=== PATIENT | female | born 1940 | race Caucasian/White ===

== ENCOUNTER 2017-11-22 17:09 | Emergency (ER) | payer MEDICARE, OTHER ==
[~2017-11-22] VITALS: Ht 170.2 cm; Wt 89.1 kg
[2017-11-22] MEDS ORDERED: ACETAMINOPHEN 500 MG TABLET ONE (18:17)
[2017-11-22] MEDS ORDERED: KETOROLAC 30 MG/1 ML ONE (18:17)
[2017-11-22 18:21] VITALS: BP 154/85
[2017-11-22] MEDS ORDERED: ACETAMINOPHEN 500 MG TABLET PO ONE (18:30)
[2017-11-22] MEDS ORDERED: KETOROLAC 30 MG/1 ML IM ONE (18:30)
[2017-11-22] MEDS ORDERED: LIDODERM 5% PATCH TD ONE (18:30)
== END 2017-11-22 19:23 | disposition home or self-care (01) ==
LOC: ED 19:00
DX: M54.41 Lumbago with sciatica, right side (principal)
CPT/HCPCS: 72110; 96372; 99284; J1885

== ENCOUNTER 2018-04-13 08:17 | Observation (INO) | payer MEDICARE, OTHER ==
[~2018-04-13] VITALS: Ht 170.2 cm; Wt 90.5 kg
--- NOTE | 2018-04-13 09:06 | NUR ---
Pt presemts to ED with complaints of chest discomfort. Pt describes as "twinge in my chest," starting ar approx 0400 this AM. Pt states she has not been sleeping well for the past weeek. Pt denies any dixxiness, N/V or SOB. CP moniotrs in place, callm light in reach. Family at bedside.
[2018-04-13] MEDS ORDERED: ASPIRIN 81 MG TABLET CHEW PO ONE (09:30)
[2018-04-13] MEDS ORDERED: SODIUM CHLORIDE FLUSH 10ML SYR IVF ONE (09:30)
[2018-04-13] MEDS ORDERED: ASPIRIN 81 MG TABLET CHEW ONE (09:37)
[2018-04-13] MEDS ORDERED: MELO15TA24 PO (09:42)
[2018-04-13 09:45] LABS: BASOPHILS # (AUTO) 0.02 x10^3/uL (0-0.1); BASOPHILS % (AUTO) 0 % (0-1); EOSINOPHILS # (AUTO) 0.13 x10^3/uL (0-0.4); EOSINOPHILS % (AUTO) 2 % (1-7); LYMPHOCYTES # (AUTO) 1.44 x10^3/uL (1-3.4); LYMPHOCYTES % (AUTO) 20 % (22-44); MD NO; MEAN CORPUSCULAR HEMOGLOBIN 30.2 pg (27.0-34.8); MEAN CORPUSCULAR HGB CONC 33.5 g/dL (32.4-35.8); MEAN CORPUSCULAR VOLUME 90.2 fL (80-100); MEAN PLATELET VOLUME 8.8 fL (7.4-10.4); MONOCYTES # (AUTO) 0.43 x10^3/uL (0.2-0.8); MONOCYTES % (AUTO) 6 % (2-9); NEUTROPHILS # (AUTO) 5.14 x10^3/uL (1.8-6.8); NEUTROPHILS % (AUTO) 72 % (42-75); PLATELET COUNT 218 x10^3/uL (130-400); RED BLOOD COUNT 5.12 x10^6/uL (3.82-5.3); RED CELL DISTRIBUTION WIDTH 12.9 % (9.6-15.2)
[2018-04-13 10:08] LABS: CULTURE INDICATED? NO; MICROSCOPIC NOT IND
[2018-04-13 10:21] LABS: ALANINE AMINOTRANSFERASE 44 U/L (12-78); ALBUMIN 3.7 g/dL (3.4-5.0); ANION GAP 7 mmol/L (5-15); CHLORIDE 107 mmol/L (98-107); CREATININE 0.74 mg/dL (0.55-1.02)
[2018-04-13 10:33] LABS: ALKALINE PHOSPHATASE 76 U/L (45-117); BILIRUBIN,TOTAL 0.6 mg/dL (0.2-1.0); TOTAL PROTEIN 7.6 g/dL (6.4-8.2); TROPONIN I 0.045 ng/mL (0.000-0.045)
[2018-04-13] MEDS ORDERED: SODIUM CHLORIDE FLUSH 10ML SYR IVF PRN (11:00)
[2018-04-13] MEDS ORDERED: ONDANSETRON ODT 4 MG PO PRN (11:30)
[2018-04-13] MEDS ORDERED: LABETALOL 5MG/ML, 20ML IVPush PRN (11:30)
[2018-04-13] MEDS ORDERED: ONDANSETRON 2MG/ML, 2ML IVPush PRN (11:30)
[2018-04-13] MEDS ORDERED: POLYETHYLENE GLYCOL 17 GM PACKET PO PRN (11:30)
--- NOTE | 2018-04-13 11:56 | NUR ---
Report to Palomo BAUTISTA.
[2018-04-13 12:17] LABS: CHOL/HDL RATIO 3.6; LDL/HDL RATIO 2.1 (0.5-3.0)
[2018-04-13 12:29] LABS: HEMOGLOBIN A1C 6.1 % (4.2-6.3)
[2018-04-13 13:17] LABS: TROPONIN I 0.051 ng/mL (0.000-0.045)
[2018-04-13 14:15] VITALS: BP 159/93
[2018-04-13] MEDS: PANTOPRAZOLE 40 MG IV IVPush SCH (14:16)
[2018-04-13] MEDS: ENOXAPARIN 40 MG/0.4 ML SQ SCH (14:16)
[2018-04-13] MEDS ORDERED: OMNIPAQUE 350 MG/ML, 100ML BOTTLE ONE (15:06)
[2018-04-13 16:22] LABS: TROPONIN I 0.049 ng/mL (0.000-0.045)
[2018-04-13 18:47] VITALS: BP 156/78
[2018-04-14 01:29] VITALS: BP 136/80
[2018-04-14 05:01] LABS: BASOPHILS # (AUTO) 0.02 x10^3/uL (0-0.1); BASOPHILS % (AUTO) 0 % (0-1); EOSINOPHILS # (AUTO) 0.25 x10^3/uL (0-0.4); EOSINOPHILS % (AUTO) 3 % (1-7); LYMPHOCYTES # (AUTO) 2.48 x10^3/uL (1-3.4); LYMPHOCYTES % (AUTO) 33 % (22-44); MD NO; MEAN CORPUSCULAR HEMOGLOBIN 30.6 pg (27.0-34.8); MEAN CORPUSCULAR VOLUME 89.9 fL (80-100); MEAN PLATELET VOLUME 9.4 fL (7.4-10.4); MONOCYTES # (AUTO) 0.59 x10^3/uL (0.2-0.8); MONOCYTES % (AUTO) 8 % (2-9); NEUTROPHILS # (AUTO) 4.28 x10^3/uL (1.8-6.8); NEUTROPHILS % (AUTO) 56 % (42-75); PLATELET COUNT 185 x10^3/uL (130-400); RED BLOOD COUNT 4.78 x10^6/uL (3.82-5.3); RED CELL DISTRIBUTION WIDTH 13.5 % (9.6-15.2)
[2018-04-14 05:18] LABS: ALBUMIN 3.3 g/dL (3.4-5.0); ANION GAP 4 mmol/L (5-15); CALCIUM 9.6 mg/dL (8.5-10.1); CHLORIDE 108 mmol/L (98-107)
[2018-04-14 05:24] LABS: ALANINE AMINOTRANSFERASE 39 U/L (12-78); ALKALINE PHOSPHATASE 65 U/L (45-117); BILIRUBIN,TOTAL 0.7 mg/dL (0.2-1.0); CREATININE 0.76 mg/dL (0.55-1.02); TOTAL PROTEIN 6.9 g/dL (6.4-8.2)
[2018-04-14] MEDS: PANTOPRAZOLE 40 MG IV IVPush SCH (07:30)
[2018-04-14 08:38] VITALS: BP 156/92
[2018-04-14] MEDS ORDERED: SENNA/DOCUSATE TABLET PO SCH (09:00)
[2018-04-14] MEDS ORDERED: REGADENOSON 0.4 MG/5 ML SYRINGE ONE (09:38)
[2018-04-14 10:19] LABS: TROPONIN I 0.042 ng/mL (0.000-0.045)
[2018-04-14] MEDS: ENOXAPARIN 40 MG/0.4 ML SQ SCH (13:17)
[2018-04-14] MEDS ORDERED: OMEP-110 PO (14:24)
[2018-04-14 15:42] VITALS: BP 133/66
== END 2018-04-14 18:00 | disposition home or self-care (01) ==
LOC: ED 09:55 → EDIP 11:10 → 5SO 12:07
PROVIDERS: ADMIT Hospitalist; ATTEND Hospitalist
DX: R07.89 Other chest pain (principal); I10 Essential (primary) hypertension; G47.00 Insomnia, unspecified; M54.30 Sciatica, unspecified side; Z82.49 Family history of ischemic heart disease and other diseases of the circulatory system; Z83.3 Family history of diabetes mellitus; R91.1 Solitary pulmonary nodule
CPT/HCPCS: 36415; 71045; 71275; 78452; 80053; 80061; 81003; 83036; 83690; 83735; 83880; 84100; 84484; 85025; 85379; 93005; 93017; 93306; 96372; 96374; 99284; A9502; C9113; C9898; G0378; J1650; J2785; Q9967